=== PATIENT | female | born 1960 | race Caucasian/White ===

== ENCOUNTER 2024-10-04 10:38 | Emergency (ER) | payer OTHER, SELFPAY ==
--- NOTE | 2024-10-04 10:44 | ED.GENMED ---
ED Provider Triage
<Ericka De La O PA-C - Last Filed: 10/04/24 10:48>
-
Patient seen by provider in Triage?: Seen in Triage
Attestation: A medical screening examination has been initiated by a qualified medical provider. Based on the assessment performed at this time, it has been determined that an emergent medical condition may exist and the patient has been informed
that further medical evaluation and possible additional diagnostic testing may be needed.
HPI: 63yoF here with chest heaviness and SOB that started today. Started with sore throat on Thursday.
GENERAL: Alert , in no apparent distress
EYE: No visual abnormalities.
NECK: Trachea midline
ENT: No visible abnormalities.
LUNGS: No acute respiratory distress
NEUROLOGICAL: Alert and oriented
SKIN: Skin intact. No visible changes.
MUSCULOSKELETAL: Moving extremities normally
PSYCH: Normal and appropriate interaction.
This is a medical evaluation conducted in person to initiate diagnostic evaluation and provide initial therapeutics. Please see further documentation by the treating clinician.
Cardiac labs, EKG, COVID/flu swab, and CXR ordered.
History of Present Illness
<Ericka De La O PA-C - Last Filed: 10/04/24 10:48>
General
Chief Complaint: Breathing Problem
Time Seen by Provider: 10/04/24 12:02
<Reynaldo Ramos MD - Last Filed: 10/05/24 15:19>
General
Source: patient
Exam Limitations: none
Nursing documentation reviewed up to this point in time: agreed with
History of Present Illness
History of Present Illness:
Patient presents to ED secondary to chest tightness along with shortness of breath, upon waking up this morning. However, patient does report not feeling well and developing sore throat 2 days ago. Patient returned from [place] 2 weeks ago.
Denies back pain. Denies leg pain or swelling. Denies dizziness. Denies nausea, vomiting, or diarrhea. Denies coughing. Denies headache. Denies loss of appetite. Denies previous history of similar symptoms. There is no family history of
heart disease or blood clots.
Review of Systems
<Reynaldo Ramos MD - Last Filed: 10/05/24 15:19>
Review of Systems
Allergies reviewed?: Yes
All Other Systems: ROS reviewed and negative except as documented in HPI and ROS
Constitutional: Reports no symptoms
EENT: Reports no symptoms
Respiratory: Reports trouble breathing
Cardiac: Reports chest pain
ABD/GI: Reports no symptoms
: Reports no symptoms
Musculoskeletal: Reports no symptoms
Skin: Reports no symptoms
Neurological: Reports no symptoms
Phy Exam
<Reynaldo Ramos MD - Last Filed: 10/05/24 15:19>
Physical Exam
Physical Exam:
Physical Exam
General: no apparent distress, not acutely ill. afebrile
Head: nc/at. eomi
Neck: supple. no meningeal signs.
Heart: s1/s2 regular rate and rhythm, no murmur. equal radial pulses.
Lungs: no acute respiratory distress. clear bilaterally
Abdomen: normal bowel sounds. not tender.
Neuro: alert and oriented. no focal neurological deficits
Skin: no rash
Psychiatric: well kept. interactive and cooperative
Extremities: no edema. no calf tenderness.
Scores
<Reynaldo Ramos MD - Last Filed: 10/05/24 15:19>
Heart Failure Risk
Heart Failure Risk Score: Not Applicable
Heart Score for Chest Pain Patients
STEMI patient?: No
History: Slightly or Non-Suspicious
ECG: Normal
Age: >45 - <65 years
Risk Factors: 1 or 2 Risk Factors
Troponin: </= Normal Limit
Heart Score for Chest Pain Patients: 2
Heart Score Risk: 2.5% MACE over next 6 weeks
Course
<Ericka De La O PA-C - Last Filed: 10/04/24 10:48>
Orders/Labs/Results
Orders:
Orders
10/04/24 10:46
Electrocardiogram (*1) Urgent
Reason for Study: Chest Pain
EKG- Treatment ONCE
CR Chest - 2 Views Urgent
Comment:
Reason For Exam: CP/SOB
10/04/24 11:00
COVID-19 Antigen Urgent
Source: Nasal Swab
Complete Blood Count/With Diff Urgent
Comprehensive Metabolic Panel Urgent
Troponin I Urgent
Influenza A+B Rapid Molecular Urgent
[facility]ELIA Source: Nasal Swab
Specimen Description:
10/04/24 12:58
CT Chest Pe Study Urgent
Comment:
Reason For Exam: hypoxia with sob/cp
10/04/24 15:12
Electrocardiogram (*1) Urgent
Reason for Study: Chest Pain
EKG- Treatment ONCE
10/04/24 15:59
Troponin I Urgent
Abnormal Lab Results
10/04/24
11:00
BUN 20 H mg/dl
(7-17)
Glucose 108 H mg/dl
(70-99)
Calcium 10.3 H mg/dl
(8.4-10.2)
10/04/24 11:00
10/04/24 11:00
Vital Signs
Initial and Last Documented VS:
Initial Vital Signs
Temp Pulse Resp BP Pulse Ox
97.8 F 82 15 187/110 96
10/04/24 10:47 10/04/24 10:47 10/04/24 10:47 10/04/24 10:47 10/04/24 10:47
Last Documented Vital Signs
Temp Pulse Resp BP Pulse Ox
97.8 F 70 23 117/82 91
10/04/24 10:47 10/04/24 16:30 10/04/24 16:30 10/04/24 15:00 10/04/24 16:30
<Reynaldo Ramos MD - Last Filed: 10/05/24 15:19>
Orders/Labs/Results
Orders:
Orders
10/04/24 10:46
Electrocardiogram (*1) Urgent
Reason for Study: Chest Pain
EKG- Treatment ONCE
CR Chest - 2 Views Urgent
Comment:
Reason For Exam: CP/SOB
10/04/24 11:00
COVID-19 Antigen Urgent
Source: Nasal Swab
Complete Blood Count/With Diff Urgent
Comprehensive Metabolic Panel Urgent
Troponin I Urgent
Influenza A+B Rapid Molecular Urgent
AMELIA Source: Nasal Swab
Specimen Description:
10/04/24 12:58
CT Chest Pe Study Urgent
Comment:
Reason For Exam: hypoxia with sob/cp
10/04/24 15:12
Electrocardiogram (*1) Urgent
Reason for Study: Chest Pain
EKG- Treatment ONCE
10/04/24 15:59
Troponin I Urgent
Abnormal Lab Results
10/04/24
11:00
BUN 20 H mg/dl
(7-17)
Glucose 108 H mg/dl
(70-99)
Calcium 10.3 H mg/dl
(8.4-10.2)
10/04/24 11:00
10/04/24 11:00
Vital Signs
Initial and Last Documented VS:
Initial Vital Signs
Temp Pulse Resp BP Pulse Ox
97.8 F 82 15 187/110 96
10/04/24 10:47 10/04/24 10:47 10/04/24 10:47 10/04/24 10:47 10/04/24 10:47
Last Documented Vital Signs
Temp Pulse Resp BP Pulse Ox
97.8 F 70 23 117/82 91
10/04/24 10:47 10/04/24 16:30 10/04/24 16:30 10/04/24 15:00 10/04/24 16:30
<Reynaldo Ramos MD - Last Filed: 10/05/24 15:19>
MDM/Problems Addressed
MDM/Problems Addressed:
CT chest report reviewed.
Patient's presenting symptoms, likely secondary to nonspecific viral illness. However, given sudden nature of her chest discomfort, will repeat troponin at this time.
<Reynaldo Ramos MD - Last Filed: 10/05/24 15:19>
*EKG
Interpreted by ED Provider?: Yes
EKG Intrepretation Date: 10/04/24
Heart Rate: 67
Rate: normal
Rhythm: sinus
[place]: normal axis
Interval: normal interval
*Critical Care Note
Total Time (30-74mins, 75-104mins- exclusive of procedures): Not Applicable
ED Attending Note
<Ericka De La O PA-C - Last Filed: 10/04/24 10:48>
-
Portions of this chart may have been created with voice recognition software.� Occasional wrong word or��sound alike� substitutions may have occurred due to the inherent limitations of voice recognition software.
Discharge Plan
Departure
Patient Disposition: Home (Routine Discharge)
Patient with high blood pressure during this ER visit?: Yes
Condition: Good
Discharge Problem:
Dyspnea
Instructions: Shortness of Breath (Dyspnea) (DC)
Referrals:
Justa Hendrickson DO [Family Provider] -
Activity Restrictions/Additional Instructions:
As discussed, please follow-up with your primary care physician for reevaluation. Please return to ED with worsening symptoms.
Interventions
Interventions:
*Risk Screen - Suicide Last Done: 10/04/24 11:54
*Neglect/Abuse Screening Last Done: 10/04/24 11:54
ED- Fall Risk Assessment Last Done: 10/04/24 11:55
*ED COVID-19 Vaccine History Last Done: 10/04/24 11:54
*Nursing Disposition Last Done: 10/04/24 16:59
ED- Cardiac Assessment Last Done: 10/04/24 11:55
ED- Pulmonary Assessment Last Done: 10/04/24 11:55
Discharge Date and Time
Discharge Date/Time: 10/04/24 17:01
Print Language: CZECH
[2024-10-04 10:47] VITALS: BP 187/110
[2024-10-04 11:14] LABS: % Basophils 0.9 % (0-2); % Eosinophils 1.4 % (0-6); % Immature Granulocytes 0.3 % (0-0.5); % Lymphocytes 27.5 % (20.5-51.1); % Monocytes 8.1 % (1.7-9.3); % Neutrophils 61.8 % (42.2-75.2); Absolute Basophils 0.1 10^3/uL (0-0.2); Absolute Eosinophils 0.1 10^3/uL (0-0.7); Absolute Monocytes 0.6 10^3/uL (0.1-0.6); Absolute Neutrophils 4.6 10^3/uL (1.4-6.5); Hematocrit 46.2 % (37.0-47.0); Hemoglobin 15.4 g/dL (12.0-16.0); Mean Corp Hgb Conc. 33.3 g/dL (33.0-37.0); Mean Corpuscular Hgb 29.1 pg (27.0-31.0); Mean Corpuscular Volume 87.2 fL (81.0-99.0); Mean Platelet Volume 10.4 fL (7.4-10.4); Nucleated Red Blood Cells % 0 %; Platelet Count 249 10^3/uL (130-400); White Blood Cell Count 7.4 10^3/uL (4.8-10.8)
[2024-10-04 11:21] LABS: COVID-19 Antigen Negative (Negative)
[2024-10-04 11:22] LABS: ALT (SGPT) 23 U/L (0-35); AST (SGOT) 27 U/L (14-36); Albumin 4.8 g/dl (3.5-5.0); Alkaline Phosphatase 81 U/L (38-126); Blood Urea Nitrogen 20 mg/dl (7-17); Calcium 10.3 mg/dl (8.4-10.2); Carbon Dioxide 26 mmol/L (22-30); Chloride 105 mmol/L (98-107); Glucose 108 mg/dl (70-99); Potassium 4.3 mmol/L (3.5-5.1); Sodium 142 mmol/L (135-145); Total Bilirubin 0.5 mg/dl (0.2-1.3); Total Protein 7.2 g/dl (6.3-8.2); eGFR > 60.00
[2024-10-04 11:33] LABS: Troponin I < 0.012 ng/ml
[2024-10-04 11:51] VITALS: BP 157/95
[2024-10-04 11:53] VITALS: BMI 30.1
[2024-10-04 12:00] VITALS: BP 148/91
[2024-10-04 13:00] VITALS: BP 108/72
[2024-10-04 14:08] VITALS: BP 134/84
[2024-10-04 15:00] VITALS: BP 117/82
[2024-10-04 16:30] LABS: Troponin I < 0.012 ng/ml
== END 2024-10-04 17:01 | disposition home or self-care (01) ==
LOC: EMR 10:38
PROVIDERS: Physician Assistant; EMERGENCY PHYSICIAN Emergency Medicine; FAMILY PHYSICIAN Family Medicine
DX: R06.00 Dyspnea, unspecified (principal); R07.89 Other chest pain
CPT/HCPCS: 99285; 71046; 71275; 80053; 84484; 85025; 87502; 87811; 93005; Q9967